=== PATIENT | male | born 1975 | race Caucasian/White ===

== ENCOUNTER 2018-10-15 00:06 | Emergency (ER) | payer MEDICAID ==
[~2018-10-15] VITALS: Ht 180.3 cm; Wt 131.5 kg
--- NOTE | 2018-10-15 01:01 | NUR ---
CALLED IN WAITING ROOM, NO ANSWER.
--- NOTE | 2018-10-15 01:55 | NUR ---
PT BIBSELF C/O SHAKINESS AND THAT SOMEONE STOLE HIS MEDICATIONS. PT ALSO STATES THAT HE IS SUICIDAL WITH PLAN TO CUT HIS THROAT. PT AXO4. RESPIRATIONS EVEN AND UNLABORED. SUICIDAL PRECAUTIONS TAKEN.
[2018-10-15] MEDS ORDERED: LORAZEPAM 1 MG TABLET PO ONE (02:00)
[2018-10-15] MEDS ORDERED: LORAZEPAM 1 MG TABLET ONE (03:06)
--- NOTE | 2018-10-15 04:00 | NUR ---
PT AMBULATORY WITH STEADY GAIT. URINE SAMPLE OBTAINED AND SENT TO LAB.
--- NOTE | 2018-10-15 04:05 | NUR ---
RESEARCH DEVELOPMENT MANAGER AT BEDSIDE. LABS DRAWN AND SENT TO LAB.
[2018-10-15 04:10] LABS: BASOPHILS # (AUTO) 0.1 /CMM (0.0-0.2); EOSINOPHILS % (AUTO) 1.3 % (0.0-6.0); HEMATOCRIT 36 % (39-51); HEMOGLOBIN 11.6 g/dL (13.5-17.5); LYMPHOCYTES # (AUTO) 1.8 /CMM (0.8-4.8); LYMPHOCYTES % (AUTO) 26.8 % (20.0-44.0); MEAN CORPUSCULAR HGB CONC 33 g/dl (31.0-36.0); MEAN CORPUSCULAR VOLUME 80 fL (80-96); MONOCYTES # (AUTO) 0.4 /CMM (0.1-1.30); MONOCYTES % (AUTO) 5.9 % (2.0-12.0); NEUTROPHILS # (AUTO) 4.5 /CMM (1.8-8.9); PLATELET COUNT (AUTO) 260 /CMM (150-450); RED BLOOD CELL COUNT(AUTO) 4.46 MIL/uL (4.5-6.0); WHITE BLOOD COUNT (AUTO) 6.9 K/uL (4.3-11.0)
[2018-10-15 04:21] LABS: APPEARANCE,URINE Clear (CLEAR); BILIRUBIN,URINE Negative (NEGATIVE); BLOOD, URINE Negative Ery/uL (NEGATIVE); COLOR,URINE Yellow (YELLOW); KETONES,URINE 15 (NEGATIVE); LEUKOCYTE ESTERASE ,URINE Negative (NEGATIVE); NITRITE, URINE Negative (NEGATIVE); PROTEIN,URINE Negative (NEGATIVE); UGLUCOSE Negative (NEGATIVE)
[2018-10-15 04:26] LABS: CALCIUM, SERUM 8.4 mg/dL (8.5-10.1); CREATININE 0.7 mg/dL (0.6-1.3); POTASSIUM 3.3 mmol/L (3.5-5.1)
[2018-10-15 04:32] LABS: ALBUMIN 3.6 g/dL (3.4-5.0); BILIRUBIN,DIRECT 0.2 mg/dL (0.0-0.2); BILIRUBIN,TOTAL 0.7 mg/dL (0.2-1.0)
[2018-10-15 04:40] LABS: SALICYLATE 0.8 mg/dL (2.8-20.0)
[2018-10-15 05:15] LABS: BACTERIA,URINE None seen /HPF (None Seen); RBC,URINE 0-2 /HPF (0-2); SQUAMOUS EPITHELIAL CELL,UR Few /HPF (None Seen); WBC,URINE 0-2 /HPF (0-3)
--- NOTE | 2018-10-15 06:02 | NUR ---
PT RESTING IN BED, NAD NOTED. WILL CONTINUE TO MONITOR.
--- NOTE | 2018-10-15 06:35 | NUR ---
accepted to jennie [facility]. number for report [phone]. will call back with ambulance eta.
--- NOTE | 2018-10-15 06:36 | NUR ---
AMBULANCE ETA 0800
--- NOTE | 2018-10-15 06:40 | NUR ---
REPORT GIVEN TO CRISTOPHER BURTON AT [facility].
--- NOTE | 2018-10-15 07:35 | NUR ---
REPORT GIVEN TO ALETHEA BURTON [facility].
--- NOTE | 2018-10-15 07:35 | NUR ---
REPORT RECEIVED FROM MAUREEN BURTON [facility]
--- NOTE | 2018-10-15 08:27 | NUR ---
ALL BELONGINGS GIVEN TO PATIENT.
[2018-10-15 08:28] VITALS: BP 146/100
--- NOTE | 2018-10-15 08:29 | NUR ---
Patient discharged to [facility] in stable condition. Written and verbal after care instructions given. Patient verbalizes understanding of instruction. PT WILL BE TRANSFERRED TO [facility].
== END 2018-10-15 08:32 ==
LOC: ER 00:07
DX: F41.9 Anxiety disorder, unspecified (principal); R45.851 Suicidal ideations; F19.10 Other psychoactive substance abuse, uncomplicated; F31.9 Bipolar disorder, unspecified; F20.9 Schizophrenia, unspecified; F29 Unspecified psychosis not due to a substance or known physiological condition; F10.10 Alcohol abuse, uncomplicated; F15.10 Other stimulant abuse, uncomplicated; Y90.2 Blood alcohol level of 40-59 mg/100 ml
CPT/HCPCS: 36415; 80048; 80076; 80305; 80307; 80329; 81001; 85025; 99285; G0480; 81000-TC

== ENCOUNTER 2019-03-10 01:26 | Emergency (ER) | payer MEDICAID, OTHER ==
[~2019-03-10] VITALS: Ht 182.9 cm; Wt 136.1 kg
--- NOTE | 2019-03-10 01:56 | NUR ---
SAMAN. C/O "IM HAVING AUDATORY HALLUCINATIONS TELLING ME TO HURT MYSELF AND OTHERS" -SOB AOX4. VSS.
[2019-03-10] MEDS ORDERED: QUETIAPINE FUMARATE 25 MG TABLET ONE (01:58)
[2019-03-10] MEDS ORDERED: QUETIAPINE FUMARATE 100 MG TABLET PO SCH (02:00)
[2019-03-10 02:13] LABS: BASOPHILS % (AUTO) 0.6 % (0.0-2.0); EOSINOPHILS % (AUTO) 2.6 % (0.0-6.0); HEMATOCRIT 38 % (39-51); HEMOGLOBIN 12.1 g/dL (13.5-17.5); LYMPHOCYTES # (AUTO) 2.9 /CMM (0.8-4.8); LYMPHOCYTES % (AUTO) 49.5 % (20.0-44.0); MEAN CORPUSCULAR HGB CONC 32 g/dl (31.0-36.0); MEAN CORPUSCULAR VOLUME 79 fL (80-96); MONOCYTES # (AUTO) 0.3 /CMM (0.1-1.30); NEUTROPHILS # (AUTO) 2.4 /CMM (1.8-8.9); NEUTROPHILS % (AUTO) 42.3 % (43.0-81.0); PLATELET COUNT (AUTO) 332 /CMM (150-450); RED BLOOD CELL COUNT(AUTO) 4.75 MIL/uL (4.5-6.0); WHITE BLOOD COUNT (AUTO) 5.8 K/uL (4.3-11.0)
[2019-03-10 02:18] LABS: APPEARANCE,URINE CLEAR (CLEAR); BILIRUBIN,URINE NEGATIVE (NEGATIVE); BLOOD, URINE NEGATIVE Ery/uL (NEGATIVE); COLOR,URINE YELLOW (YELLOW); KETONES,URINE NEGATIVE (NEGATIVE); LEUKOCYTE ESTERASE ,URINE NEGATIVE (NEGATIVE); NITRITE, URINE NEGATIVE (NEGATIVE); PROTEIN,URINE NEGATIVE (NEGATIVE); UGLUCOSE NEGATIVE (NEGATIVE); UROBILINOGEN,URINE 0.2 EU/dL (0.2)
[2019-03-10 02:21] LABS: CALCIUM, SERUM 7.6 mg/dL (8.5-10.1); CREATININE 0.8 mg/dL (0.6-1.3); POTASSIUM 3.4 mmol/L (3.5-5.1)
[2019-03-10 02:28] LABS: ALBUMIN 3.1 g/dL (3.4-5.0); BILIRUBIN,DIRECT 0.1 mg/dL (0.0-0.2); BILIRUBIN,TOTAL 0.2 mg/dL (0.2-1.0); TOTAL PROTEIN, SERUM 7.6 g/dL (6.4-8.2)
[2019-03-10 02:29] LABS: SALICYLATE 0.5 mg/dL (2.8-20.0)
--- NOTE | 2019-03-10 05:56 | NUR ---
Patient is resting comfortably in bed with eyes closed. Easily aroused. VSS
--- NOTE | 2019-03-10 07:30 | NUR ---
REPORT REC'D FROM SAMSON B[facility]TON [facility].
--- NOTE | 2019-03-10 08:00 | NUR ---
ONCE PT ETOH LEVEL IS BELOW 100, SEND INFO TO [facility] FOR POSSIBLE ADMISSION
[2019-03-10] MEDS ORDERED: diphenhydrAMINE HCL 25 MG CAPSULE ONE (12:40)
[2019-03-10] MEDS ORDERED: diphenhydrAMINE HCL 25 MG CAPSULE PO ONE (13:00)
--- NOTE | 2019-03-10 14:00 | NUR ---
PT ETOH LEVEL IS BACK, <100 CALLED [facility] SPOKE TO KATYA TO SEND CLINICALS
--- NOTE | 2019-03-10 15:00 | NUR ---
PT NEEDS TO HAVE A NOTE SAYING MEDICALLY CLEAR FOR PSYCH ADMIT, DR. CUELLAR MADE AWARE
[2019-03-10 20:04] VITALS: BP 122/78
--- NOTE | 2019-03-10 20:20 | NUR ---
PT ACCEPTED TO [facility] BY DR TUTTLE. # FOR REPORT [phone]
[2019-03-10] MEDS ORDERED: POTASSIUM CHLORIDE 20 MEQ TAB.PRT.SR PO ONE ×2 (20:22→20:30)
--- NOTE | 2019-03-10 20:29 | NUR ---
ambulnz eta [id number]
--- NOTE | 2019-03-10 20:35 | NUR ---
ETA [facility] [phone]
--- NOTE | 2019-03-10 21:11 | NUR ---
[facility] AT BEDSIDE FOR TRANSPORT.
== END 2019-03-10 21:40 | disposition short-term general hospital (02) ==
LOC: ER 01:26
DX: R45.851 Suicidal ideations (principal); R44.0 Auditory hallucinations; F10.129 Alcohol abuse with intoxication, unspecified; Y90.8 Blood alcohol level of 240 mg/100 ml or more
CPT/HCPCS: 36415; 80048; 80076; 80305; 80307 ×2; 80329; 81001; 85025; 99285; G0480; Q0163; 81000-TC

== ENCOUNTER 2021-11-07 07:58 | Emergency (ER) | payer OTHER ==
[~2021-11-07] VITALS: Ht 182.9 cm; Wt 108.9 kg
[2021-11-07 08:39] LABS: BASOPHILS % (AUTO) 0.5 % (0.0-2.0); EOSINOPHILS % (AUTO) 5.1 % (0.0-6.0); HEMATOCRIT 37 % (39-51); HEMOGLOBIN 12.2 g/dL (13.5-17.5); LYMPHOCYTES # (AUTO) 2.3 K/uL (0.8-4.8); MEAN CORPUSCULAR HGB CONC 33 g/dl (31.0-36.0); MEAN CORPUSCULAR VOLUME 79 fL (80-96); MONOCYTES # (AUTO) 0.4 K/uL (0.1-1.30); MONOCYTES % (AUTO) 5.1 % (2.0-12.0); NEUTROPHILS # (AUTO) 4.3 K/uL (1.8-8.9); NEUTROPHILS % (AUTO) 58.3 % (43.0-81.0); PLATELET COUNT (AUTO) 234 K/uL (150-450); RED BLOOD CELL COUNT(AUTO) 4.76 MIL/uL (4.5-6.0); WHITE BLOOD COUNT (AUTO) 7.4 K/uL (4.3-11.0)
[2021-11-07] MEDS ORDERED: diphenhydrAMINE HCL 25 MG CAPSULE PO ONE (09:00)
[2021-11-07] MEDS ORDERED: diphenhydrAMINE HCL 25 MG CAPSULE ONE (09:03)
[2021-11-07 09:10] LABS: CALCIUM, SERUM 8.5 mg/dL (8.5-10.1); CREATININE 0.7 mg/dL (0.6-1.3); POTASSIUM 3.4 mmol/L (3.5-5.1)
[2021-11-07 09:14] LABS: ALBUMIN 3.3 g/dL (3.4-5.0); BILIRUBIN,DIRECT 0.3 mg/dL (0.0-0.2); BILIRUBIN,TOTAL 0.8 mg/dL (0.2-1.0); TOTAL PROTEIN, SERUM 7.8 g/dL (6.4-8.2)
--- NOTE | 2021-11-07 11:20 | NUR ---
FAXED CLINICALS TO [facility]TA[facility].
--- NOTE | 2021-11-07 12:57 | NUR ---
SS consult requested for possible homelessness and suicidal ideation. Pt. is a 45-year-old male who was admitted to [facility] on 11/07/2021 due to medical clearance. Upon SS consult, pt. is alert and oriented x4. Pt. appears tired and does not provide appropriate eye contact. Pt. appears with a depressed mood and congruent affect. Pt. presents with low speech and appears unkempt. Pt. was cooperative throughout the assessment. Pt. stated he got out of assisted eight days ago and has been living at his Uncles house. Pt. could not provide contact information or an address. business planner offered pt. homeless resources and pt. accepted. business planner explored pt.'s psychiatric history. Pt. stated he is diagnosed with schizoaffective disorder. Pt. stated he is prescribed alprazolam. business planner offered the pt. mental health resources and the pt. accepted. Pt. stated he came to the hospital because he was having auditory hallucinations and suicidal ideation with a plan. Pt. did not disclose what the plan was. Pt. stated he wanted to be placed at [facility] [[address] [place] [address]]. Pt. denied substance use. Pt. denied homicidal ideation. Pt. denied visual hallucinations. Plan: Plan: Upon Discharge, pt. stated he wanted to be discharged to [facility] [[address] [place] [address]]. Pt. signed homeless waiver and it was placed in the chart. provided the pt. with the following homeless resources: Year-round shelters: [facility] [address] [place], [place] [id number] ; [facility] [address] [place] [address]; [facility] [id number] [facility]. [facility] [address] Hygiene: [facility]: [address] ; [facility] [address] [facility] ; [facility] [address] [place] . Food Resources: [place] [facility] at [facility]- [address] [place]; Meet Each Need with [facility] ([facility]) [address]. [place]; [facility] [address] [facility]; [facility] [address] [facility]. Mental Health resources provided: [facility] [address] [place] [address] ; [facility] [place], [facility]. [address] [facility] [address], [place] [address] ; [facility] [address] [facility] [place] [address] ; [facility] [place], [place] [id number] Healthcare Clinics: [facility] [address] [facility], [address] [place]. [place] ; [facility] [address] [facility] [address] [place] [address]; [place] [address] [facility] [place] [address] [phone]
--- NOTE | 2021-11-07 14:24 | NUR ---
ACCEPTED TO [facility] UNDER DR. STAPLETON CALL [phone] FOR REPORT. WILL SEND INDEXER 1500
[2021-11-07] MEDS ORDERED: TEMAZEPAM 15 MG CAPSULE PO PRN (14:30)
[2021-11-07 16:00] VITALS: BP 118/76
--- NOTE | 2021-11-07 16:40 | NUR ---
PICKED UP BY [facility] IN STABLE CONDITION
== END 2021-11-07 16:44 ==
LOC: ER 08:14
DX: R45.851 Suicidal ideations (principal); F20.9 Schizophrenia, unspecified; F31.9 Bipolar disorder, unspecified; Z59.01 Sheltered homelessness; Z87.820 Personal history of traumatic brain injury; Z20.822 Contact with and (suspected) exposure to COVID-19
CPT/HCPCS: 99285; 85025; 80048; 80076; 36415; 87426; 80143; 80320; 80307; Q0163; C9803; G0480

== ENCOUNTER 2021-12-03 04:53 | Emergency (ER) | payer OTHER ==
[~2021-12-03] VITALS: Ht 172.7 cm; Wt 113.4 kg
[2021-12-03 05:00] VITALS: BP 149/82
--- NOTE | 2021-12-03 05:15 | NUR ---
PATIENT BIBSELF C/O +SI WITH NO PLAN, WANTS VOL PSYCH ADMIT TO [facility]. PATIENT IS A/O X 4, RR EVEN AND UNLABORED NO SOB NOTED, PATIENT IS AFEBRILE, VSS. PATIENT TAKEN TO ER BED 18, WANDED BY SECURITY AND BELONGINGS TAKEN. WILL CONTINUE TO MONITOR.
--- NOTE | 2021-12-03 05:16 | NUR ---
URINE COLLECTED SENT TO LAB
[2021-12-03 05:34] LABS: BASOPHILS % (AUTO) 0.6 % (0.0-2.0); EOSINOPHILS % (AUTO) 2.4 % (0.0-6.0); HEMATOCRIT 40 % (39-51); HEMOGLOBIN 12.7 g/dL (13.5-17.5); LYMPHOCYTES # (AUTO) 2.6 K/uL (0.8-4.8); LYMPHOCYTES % (AUTO) 32.2 % (20.0-44.0); MEAN CORPUSCULAR HGB CONC 32 g/dl (31.0-36.0); MEAN CORPUSCULAR VOLUME 82 fL (80-96); MONOCYTES # (AUTO) 0.4 K/uL (0.1-1.30); MONOCYTES % (AUTO) 4.5 % (2.0-12.0); NEUTROPHILS # (AUTO) 4.9 K/uL (1.8-8.9); NEUTROPHILS % (AUTO) 60.3 % (43.0-81.0); PLATELET COUNT (AUTO) 324 K/uL (150-450); RED BLOOD CELL COUNT(AUTO) 4.89 MIL/uL (4.5-6.0); WHITE BLOOD COUNT (AUTO) 8.1 K/uL (4.3-11.0)
[2021-12-03 05:37] LABS: BILIRUBIN,URINE SMALL (NEGATIVE); COLOR,URINE YELLOW (YELLOW); LEUKOCYTE ESTERASE ,URINE NEGATIVE (NEGATIVE); NITRITE, URINE NEGATIVE (NEGATIVE); PROTEIN,URINE NEGATIVE (NEGATIVE); UGLUCOSE NEGATIVE (NEGATIVE)
--- NOTE | 2021-12-03 05:44 | NUR ---
COVID SWAB COLLECTED SENT TO LAB
[2021-12-03 05:49] LABS: CALCIUM, SERUM 8.4 mg/dL (8.5-10.1); CREATININE 0.7 mg/dL (0.6-1.3)
[2021-12-03 05:54] LABS: ALBUMIN 3.5 g/dL (3.4-5.0); BILIRUBIN,DIRECT 0.2 mg/dL (0.0-0.2); BILIRUBIN,TOTAL 0.6 mg/dL (0.2-1.0); TOTAL PROTEIN, SERUM 7.8 g/dL (6.4-8.2)
--- NOTE | 2021-12-03 07:53 | NUR ---
MOVE SHEET SUBMITTED.
[2021-12-03] MEDS ORDERED: CHLORDIAZEPOXIDE HCL 25 MG CAPSULE ONE (10:57)
[2021-12-03] MEDS ORDERED: LORAZEPAM 1 MG TABLET ONE (10:58)
[2021-12-03] MEDS ORDERED: LORAZEPAM 1 MG TABLET PO ONE (11:00)
[2021-12-03] MEDS ORDERED: CHLORDIAZEPOXIDE HCL 25 MG CAPSULE PO ONE (11:00)
[2021-12-03] MEDS ORDERED: POTASSIUM CHLORIDE 20 MEQ TAB.PRT.SR PO ONE ×2 (14:30)
--- NOTE | 2021-12-03 15:21 | NUR ---
PT ACCEPTED TO [facility] UNDER DR. TUTTLE PLEASE CALL [phone] FOR REPORT IN CLASSROOM TUTOR WILL BE HERE AT [phone]
== END 2021-12-03 16:34 ==
LOC: ER 04:55
DX: R45.851 Suicidal ideations (principal); F19.10 Other psychoactive substance abuse, uncomplicated; Z59.01 Sheltered homelessness; F10.129 Alcohol abuse with intoxication, unspecified; Y90.8 Blood alcohol level of 240 mg/100 ml or more; E87.6 Hypokalemia; Z20.822 Contact with and (suspected) exposure to COVID-19
CPT/HCPCS: 99285; 85025; 80048; 80076; 81003; 36415; 87426; 80143; 80320 ×3; 80307; C9803; G0480

== ENCOUNTER 2022-01-03 06:06 | Emergency (ER) | payer OTHER ==
--- NOTE | 2022-01-03 06:10 | NUR ---
PATIENT CALLEDTO JOVANI NO ANSWER
--- NOTE | 2022-01-03 06:20 | NUR ---
TIA NOT IN WAITING ROOM
== END 2022-01-03 06:21 | disposition left against medical advice (07) ==
LOC: ER 06:13
DX: Z53.21 Procedure and treatment not carried out due to patient leaving prior to being seen by health care provider (principal)

== ENCOUNTER 2022-02-03 08:43 | Emergency (ER) | payer OTHER ==
[~2022-02-03] VITALS: Ht 180.3 cm; Wt 136.1 kg
--- NOTE | 2022-02-03 09:23 | NUR ---
TO ER 18 FOR EVAL,SECURITY CALLED FOR WANDING
[2022-02-03 09:51] LABS: BASOPHILS % (AUTO) 0.8 % (0.0-2.0); EOSINOPHILS % (AUTO) 2.5 % (0.0-6.0); HEMATOCRIT 42 % (39-51); HEMOGLOBIN 13.4 g/dL (13.5-17.5); LYMPHOCYTES # (AUTO) 2.3 K/uL (0.8-4.8); LYMPHOCYTES % (AUTO) 42.1 % (20.0-44.0); MEAN CORPUSCULAR HGB CONC 32 g/dl (31.0-36.0); MEAN CORPUSCULAR VOLUME 80 fL (80-96); MONOCYTES # (AUTO) 0.4 K/uL (0.1-1.30); MONOCYTES % (AUTO) 7.2 % (2.0-12.0); NEUTROPHILS # (AUTO) 2.6 K/uL (1.8-8.9); NEUTROPHILS % (AUTO) 47.4 % (43.0-81.0); PLATELET COUNT (AUTO) 255 K/uL (150-450); RED BLOOD CELL COUNT(AUTO) 5.23 MIL/uL (4.5-6.0); WHITE BLOOD COUNT (AUTO) 5.4 K/uL (4.3-11.0)
[2022-02-03 10:13] LABS: ALBUMIN 3.8 g/dL (3.4-5.0); BILIRUBIN,DIRECT 0.2 mg/dL (0.0-0.2); BILIRUBIN,TOTAL 0.5 mg/dL (0.2-1.0); CALCIUM, SERUM 8.7 mg/dL (8.5-10.1); CREATININE 0.7 mg/dL (0.6-1.3); POTASSIUM 3.3 mmol/L (3.5-5.1)
[2022-02-03 10:50] LABS: BILIRUBIN,URINE NEGATIVE (NEGATIVE); COLOR,URINE YELLOW (YELLOW); LEUKOCYTE ESTERASE ,URINE NEGATIVE (NEGATIVE); NITRITE, URINE NEGATIVE (NEGATIVE); PROTEIN,URINE NEGATIVE (NEGATIVE); UGLUCOSE NEGATIVE (NEGATIVE); UROBILINOGEN,URINE 0.2 EU/dL (0.2)
[2022-02-03] MEDS ORDERED: LORAZEPAM 1 MG TABLET ONE (19:44)
[2022-02-03] MEDS ORDERED: LORAZEPAM 1 MG TABLET PO ONE (20:00)
--- NOTE | 2022-02-03 21:41 | NUR ---
FACESHEET AND CLINICALS FAXED TO [facility].
[2022-02-03 22:19] VITALS: BP 148/88
--- NOTE | 2022-02-03 23:06 | NUR ---
[facility] [facility] [place] [facility] [place]. # FOR REPORT [phone].
--- NOTE | 2022-02-03 23:10 | NUR ---
[facility] ETA 1HR
[2022-02-03] MEDS ORDERED: POTASSIUM CHLORIDE 20 MEQ TAB.PRT.SR PO ONE (23:30)
[2022-02-04] MEDS ORDERED: POTASSIUM CHLORIDE 20 MEQ TAB.PRT.SR PO ONE (00:22)
--- NOTE | 2022-02-04 00:40 | NUR ---
PT WAS TRANSFERRED TO [facility] IN STABLE CONDITION.
== END 2022-02-04 01:21 ==
LOC: ER 08:48
DX: R45.851 Suicidal ideations (principal); F20.9 Schizophrenia, unspecified; F31.9 Bipolar disorder, unspecified; Z87.820 Personal history of traumatic brain injury; Z20.822 Contact with and (suspected) exposure to COVID-19
CPT/HCPCS: 99285; 85025; 80048; 80076; 81003; 36415; 87426; 80143; 80320 ×3; 80307; C9803; G0480

== ENCOUNTER 2022-05-15 04:21 | Emergency (ER) | payer OTHER ==
[~2022-05-15] VITALS: Ht 180.3 cm; Wt 124.7 kg
--- NOTE | 2022-05-15 04:35 | NUR ---
CHANGED TO [facility]OSPITAL [facility].
--- NOTE | 2022-05-15 04:35 | NUR ---
[id number]. MEDICAL CLEARANCE - [facility] AD[facility] FOR HEARING VOICES TO CUT HIS THROAT. PATIENT IS ALERT, AMBULATORY, ABLE TO MAKE NEEDS KNOWN. PLACED COMFORTABLY IN BED. VITALS CHECKED.
--- NOTE | 2022-05-15 04:36 | NUR ---
URINE SPECIMEN SENT TO LAB
--- NOTE | 2022-05-15 04:37 | NUR ---
COVID SWAB DONE AND SENT TO LAB
[2022-05-15 05:05] LABS: EOSINOPHILS % (AUTO) 1.5 % (0.0-6.0); HEMATOCRIT 37 % (39-51); HEMOGLOBIN 12.2 g/dL (13.5-17.5); LYMPHOCYTES # (AUTO) 1.1 K/uL (0.8-4.8); LYMPHOCYTES % (AUTO) 28.7 % (20.0-44.0); MEAN CORPUSCULAR HGB CONC 33 g/dl (31.0-36.0); MEAN CORPUSCULAR VOLUME 84 fL (80-96); MONOCYTES # (AUTO) 0.8 K/uL (0.1-1.30); MONOCYTES % (AUTO) 20.8 % (2.0-12.0); NEUTROPHILS # (AUTO) 1.8 K/uL (1.8-8.9); PLATELET COUNT (AUTO) 209 K/uL (150-450); RED BLOOD CELL COUNT(AUTO) 4.45 MIL/uL (4.5-6.0); WHITE BLOOD COUNT (AUTO) 3.7 K/uL (4.3-11.0)
[2022-05-15 05:13] LABS: CALCIUM, SERUM 8.3 mg/dL (8.5-10.1); CREATININE 0.7 mg/dL (0.6-1.3); POTASSIUM 2.9 mmol/L (3.5-5.1)
[2022-05-15 05:13] LABS: BILIRUBIN,URINE NEGATIVE (NEGATIVE); COLOR,URINE YELLOW (YELLOW); LEUKOCYTE ESTERASE ,URINE NEGATIVE (NEGATIVE); NITRITE, URINE NEGATIVE (NEGATIVE); PROTEIN,URINE NEGATIVE (NEGATIVE); UGLUCOSE NEGATIVE (NEGATIVE)
[2022-05-15 05:25] LABS: ALBUMIN 3.2 g/dL (3.4-5.0); BILIRUBIN,DIRECT 0.1 mg/dL (0.0-0.2); BILIRUBIN,TOTAL 0.3 mg/dL (0.2-1.0); TOTAL PROTEIN, SERUM 7.1 g/dL (6.4-8.2)
[2022-05-15 05:27] LABS: BACTERIA,URINE Rare /HPF (None Seen); RBC,URINE 0-2 /HPF (0-2); SQUAMOUS EPITHELIAL CELL,UR Rare /HPF (None Seen)
--- NOTE | 2022-05-15 06:25 | NUR ---
FACESHEET AND CLINICALS FAXED TO [facility].
[2022-05-15] MEDS ORDERED: POTASSIUM CHLORIDE 20 MEQ TAB.PRT.SR PO ONE ×2 (06:30→06:32)
--- NOTE | 2022-05-15 08:13 | NUR ---
PT ACCEPTED TO [facility] UNDER DR. TUTTLE PLEASE CALL [phone] FOR REPORT
--- NOTE | 2022-05-15 09:31 | NUR ---
MAILBOX FULL, NOT ABLE TO GIVE REPORT OR LEAVE MESSAGE
[2022-05-15 10:10] VITALS: BP 136/70
--- NOTE | 2022-05-15 10:16 | NUR ---
TRANSPORTATION WAITING FOR PATIENT. BELONGINGS GIVEN TO PATIENT
--- NOTE | 2022-05-15 10:23 | NUR ---
PICKED UP BY [facility] TRANSPORT PERSONNEL IN STABLE CONDITION. ALL BELONGINGS GIVEN BACK TO PATIENT. CLINICALS PROVIDED TO BE GIVEN TO [facility].
[2022-05-15 11:15] LABS: BAND % (MANUAL) 7 % (0.0-5.0); EOSINOPHILS % (MANUAL) 1 % (0-4); LYMPHOCYTES % (MANUAL) 35 % (16-48); MONOCYTES % (MANUAL) 20 % (0-11.0); NEUTROPHILS % (MANUAL) 37 (42-76)
== END 2022-05-15 10:29 ==
LOC: ER 04:25
DX: F20.9 Schizophrenia, unspecified (principal); F10.129 Alcohol abuse with intoxication, unspecified; F31.9 Bipolar disorder, unspecified; F19.10 Other psychoactive substance abuse, uncomplicated; Y90.4 Blood alcohol level of 80-99 mg/100 ml; E87.6 Hypokalemia; Z20.822 Contact with and (suspected) exposure to COVID-19; Z87.820 Personal history of traumatic brain injury
CPT/HCPCS: 99283; 85025; 80048; 80076; 85007; 81001; 36415; 87426; 80143; 80320; 80307; C9803; G0480

== ENCOUNTER 2022-05-23 09:55 | Emergency (ER) | payer OTHER ==
[~2022-05-23] VITALS: Ht 180.3 cm; Wt 122.5 kg
--- NOTE | 2022-05-23 10:28 | NUR ---
URINE SAMPLE COLLECTED AND SENT TO LAB
--- NOTE | 2022-05-23 10:28 | NUR ---
COVID SWAB COLLECTED AND SENT TO LAB
--- NOTE | 2022-05-23 10:30 | NUR ---
DR PADILLA AT BEDSIDE FOR EVAL.
[2022-05-23 10:59] LABS: BASOPHILS # (AUTO) 0.1 K/uL (0.0-0.2); BASOPHILS % (AUTO) 0.7 % (0.0-2.0); EOSINOPHILS % (AUTO) 1.4 % (0.0-6.0); HEMATOCRIT 40 % (39-51); HEMOGLOBIN 12.9 g/dL (13.5-17.5); LYMPHOCYTES # (AUTO) 1.6 K/uL (0.8-4.8); LYMPHOCYTES % (AUTO) 16.1 % (20.0-44.0); MEAN CORPUSCULAR HGB CONC 32 g/dl (31.0-36.0); MEAN CORPUSCULAR VOLUME 83 fL (80-96); MONOCYTES # (AUTO) 0.7 K/uL (0.1-1.30); MONOCYTES % (AUTO) 7.1 % (2.0-12.0); NEUTROPHILS # (AUTO) 7.4 K/uL (1.8-8.9); NEUTROPHILS % (AUTO) 74.7 % (43.0-81.0); PLATELET COUNT (AUTO) 401 K/uL (150-450); RED BLOOD CELL COUNT(AUTO) 4.86 MIL/uL (4.5-6.0); WHITE BLOOD COUNT (AUTO) 9.8 K/uL (4.3-11.0)
[2022-05-23 11:07] LABS: BILIRUBIN,URINE 1+ (NEGATIVE); COLOR,URINE DARK YELLOW (YELLOW); LEUKOCYTE ESTERASE ,URINE NEGATIVE (NEGATIVE); NITRITE, URINE NEGATIVE (NEGATIVE); PROTEIN,URINE NEGATIVE (NEGATIVE); UGLUCOSE NEGATIVE (NEGATIVE); UROBILINOGEN,URINE 0.2 EU/dL (0.2)
[2022-05-23 11:21] LABS: BACTERIA,URINE None seen /HPF (None Seen); RBC,URINE NONE SEEN /HPF (0-2); SQUAMOUS EPITHELIAL CELL,UR None Seen /HPF (None Seen); WBC,URINE 0-2 /HPF (0-3)
[2022-05-23 11:23] LABS: BILIRUBIN,DIRECT 0.2 mg/dL (0.0-0.2); BILIRUBIN,TOTAL 0.3 mg/dL (0.2-1.0); CALCIUM, SERUM 8.6 mg/dL (8.5-10.1); CREATININE 0.8 mg/dL (0.6-1.3); POTASSIUM 3.5 mmol/L (3.5-5.1); TOTAL PROTEIN, SERUM 7.2 g/dL (6.4-8.2)
[2022-05-23] MEDS ORDERED: OLAN5TAB3 PO (12:57)
--- NOTE | 2022-05-23 13:16 | NUR ---
SEEN AND EVALUATED BY DR PADILLA AND DAREN GUILLERMO ARMOR OFFICER. MEDICALLY CLEARED. DECIDED THAT HE FEELS OK AND IS NOT SUICIDAL AT THE MOMENT. REQUETED TO GO HOME. NOT ON 5150 HOLD. DISCHARGE FROM ED IN STABLE CONDITION.
[2022-05-23 13:18] VITALS: BP 115/64
== END 2022-05-23 13:21 | disposition home or self-care (01) ==
LOC: ER 10:04
DX: R45.851 Suicidal ideations (principal); F20.9 Schizophrenia, unspecified; F31.9 Bipolar disorder, unspecified; F29 Unspecified psychosis not due to a substance or known physiological condition; Z20.822 Contact with and (suspected) exposure to COVID-19
CPT/HCPCS: 99285; 85025; 80048; 80076; 81001; 36415; 87426; 80143; 80320; 80307; C9803; G0480

== ENCOUNTER 2022-11-02 02:22 | Emergency (ER) | payer OTHER ==
[~2022-11-02] VITALS: Ht 180.3 cm; Wt 124.7 kg
[~2022-11-02 02:22] MED LIST: OLAN5TAB3 PO
[2022-11-02 03:35] LABS: MEAN CORPUSCULAR VOLUME 86 fL (80-96); WHITE BLOOD COUNT (AUTO) 2.6 K/uL (4.3-11.0)
[2022-11-02 03:40] LABS: BASOPHILS % (AUTO) 0.9 % (0.0-2.0); EOSINOPHILS # (AUTO) 0.1 K/uL (0.0-0.7); EOSINOPHILS % (AUTO) 2.3 % (0.0-6.0); HEMATOCRIT 37 % (39-51); HEMOGLOBIN 11.8 g/dL (13.5-17.5); LYMPHOCYTES # (AUTO) 1.6 K/uL (0.8-4.8); MEAN CORPUSCULAR HEMOGLOBIN 27 PG (26.0-33.0); MEAN CORPUSCULAR HGB CONC 32 g/dl (31.0-36.0); MONOCYTES # (AUTO) 0.2 K/uL (0.1-1.30); MONOCYTES % (AUTO) 9.4 % (2.0-12.0); NEUTROPHILS # (AUTO) 0.8 K/uL (1.8-8.9); NEUTROPHILS % (AUTO) 28.4 % (43.0-81.0); PLATELET COUNT (AUTO) 160 K/uL (150-450); RED BLOOD CELL COUNT(AUTO) 4.33 MIL/uL (4.5-6.0); RED CELL DISTRIBUTION WIDTH 17.1 % (11.5-15.0)
[2022-11-02 03:43] LABS: CALCIUM, SERUM 8.3 mg/dL (8.5-10.1); CARBON DIOXIDE 25 mmol/L (21-32); CHLORIDE 107 mmol/L (98-107); CREATININE 0.6 mg/dL (0.6-1.3); GLUCOSE 99 mg/dL (74-106); POTASSIUM 3.2 mmol/L (3.5-5.1); SODIUM SERUM 145 mmol/L (136-145); UREA NITROGEN, BLOOD 5 mg/dL (7-18)
[2022-11-02 03:51] LABS: ALANINE AMINOTRANSFERASE 116 U/L (12-78); ALBUMIN 3.2 g/dL (3.4-5.0); ALCOHOL, BLOOD 317 mg/dL (0-10); ALKALINE PHOSPHATASE 149 U/L (46-116); ASPARTATE AMINOTRANSFERASE 204 U/L (15-37); BILIRUBIN,DIRECT 0.2 mg/dL (0.0-0.2); BILIRUBIN,TOTAL 0.3 mg/dL (0.2-1.0); TOTAL PROTEIN, SERUM 7.9 g/dL (6.4-8.2)
[2022-11-02 03:57] LABS: ACETAMINOPHEN <10 ug/ml (10-30); SALICYLATE < 2.3 mg/dL (2.8-20.0)
[2022-11-02 04:10] LABS: ANISOCYTOSIS 1+; EOSINOPHILS % (MANUAL) 4 % (0-4); LYMPHOCYTES % (MANUAL) 65 % (16-48); MONOCYTES % (MANUAL) 7 % (0-11.0); NEUTROPHILS % (MANUAL) 24 (42-76)
[2022-11-02 04:11] LABS: PLATELET ESTIMATE ADEQUATE
[2022-11-02 06:34] LABS: APPEARANCE,URINE CLEAR (CLEAR); BILIRUBIN,URINE NEGATIVE (NEGATIVE); BLOOD, URINE NEGATIVE Ery/uL (NEGATIVE); COLOR,URINE YELLOW (YELLOW); KETONES,URINE NEGATIVE (NEGATIVE); LEUKOCYTE ESTERASE ,URINE NEGATIVE (NEGATIVE); NITRITE, URINE NEGATIVE (NEGATIVE); PROTEIN,URINE NEGATIVE (NEGATIVE); UGLUCOSE NEGATIVE (NEGATIVE)
[2022-11-02 06:35] LABS: AMPHETAMINE, URINE POSITIVE (NEGATIVE); BARBITURATE, URINE NEGATIVE (NEGATIVE); BENZODIAZEPINE, URINE POSITIVE (NEGATIVE); CANNABINOID, URINE NEGATIVE (NEGATIVE); COCCAINE, URINE NEGATIVE (NEGATIVE); OPIATE, URINE NEGATIVE (NEGATIVE); PHENCYCLIDINE SCREEN,URINE NEGATIVE (NEGATIVE)
[2022-11-02 07:32] LABS: ADD URINE CULTURE NO; BACTERIA,URINE None seen /HPF (None Seen); RBC,URINE NONE SEEN /HPF (0-2); SQUAMOUS EPITHELIAL CELL,UR Rare /HPF (None Seen); WBC,URINE 0-2 /HPF (0-3)
[2022-11-02 13:34] VITALS: BP 143/81; TEMP 98.1; O2SAT 98
== END 2022-11-02 13:34 | disposition home or self-care (01) ==
LOC: ER 02:29
DX: U07.1 COVID-19 (principal); F32.A Depression, unspecified; F20.9 Schizophrenia, unspecified; Z79.899 Other long term (current) drug therapy
CPT/HCPCS: 99283; 85025; 80048; 80076; 85007; 81001; 36415; 85060; 87426; 80143; 80320; 80307; C9803; G0480

== ENCOUNTER 2023-04-25 23:10 | Emergency (ER) | payer OTHER, MEDICAID ==
[~2023-04-25] VITALS: Ht 180.3 cm; Wt 124.7 kg
[2023-04-25 23:23] VITALS: TEMP 98.2
[2023-04-25 23:27] VITALS: BP 154/88; O2SAT 96
[2023-04-26] LABS: BASOPHILS % (AUTO) 0.4 % (0.0-2.0); EOSINOPHILS # (AUTO) 0.1 K/uL (0.0-0.7); EOSINOPHILS % (AUTO) 0.7 % (0.0-6.0); HEMATOCRIT 37 % (39-51); HEMOGLOBIN 12.2 g/dL (13.5-17.5); LYMPHOCYTES # (AUTO) 2.4 K/uL (0.8-4.8); LYMPHOCYTES % (AUTO) 25.2 % (20.0-44.0); MEAN CORPUSCULAR HEMOGLOBIN 29 PG (26.0-33.0); MEAN CORPUSCULAR HGB CONC 33 g/dl (31.0-36.0); MEAN CORPUSCULAR VOLUME 86 fL (80-96); MONOCYTES # (AUTO) 0.8 K/uL (0.1-1.30); MONOCYTES % (AUTO) 8.3 % (2.0-12.0); NEUTROPHILS # (AUTO) 6.3 K/uL (1.8-8.9); NEUTROPHILS % (AUTO) 65.4 % (43.0-81.0); PLATELET COUNT (AUTO) 359 K/uL (150-450); RED BLOOD CELL COUNT(AUTO) 4.27 MIL/uL (4.5-6.0); RED CELL DISTRIBUTION WIDTH 15.8 % (11.5-15.0); WHITE BLOOD COUNT (AUTO) 9.6 K/uL (4.3-11.0)
[2023-04-26 00:07] LABS: APPEARANCE,URINE CLEAR (CLEAR); BILIRUBIN,URINE NEGATIVE (NEGATIVE); BLOOD, URINE NEGATIVE Ery/uL (NEGATIVE); COLOR,URINE YELLOW (YELLOW); KETONES,URINE NEGATIVE (NEGATIVE); LEUKOCYTE ESTERASE ,URINE NEGATIVE (NEGATIVE); NITRITE, URINE NEGATIVE (NEGATIVE); PROTEIN,URINE NEGATIVE (NEGATIVE); UGLUCOSE NEGATIVE (NEGATIVE); UROBILINOGEN,URINE 0.2 EU/dL (0.2)
[2023-04-26 00:08] LABS: CALCIUM, SERUM 8.4 mg/dL (8.5-10.1); CARBON DIOXIDE 26 mmol/L (21-32); CHLORIDE 100 mmol/L (98-107); CREATININE 0.8 mg/dL (0.6-1.3); GLUCOSE 129 mg/dL (74-106); POTASSIUM 3.6 mmol/L (3.5-5.1); SODIUM SERUM 136 mmol/L (136-145); UREA NITROGEN, BLOOD 4 mg/dL (7-18)
[2023-04-26 00:16] LABS: BARBITURATE, URINE NEGATIVE (NEGATIVE); BENZODIAZEPINE, URINE NEGATIVE (NEGATIVE); CANNABINOID, URINE NEGATIVE (NEGATIVE); COCCAINE, URINE NEGATIVE (NEGATIVE); OPIATE, URINE NEGATIVE (NEGATIVE); PHENCYCLIDINE SCREEN,URINE NEGATIVE (NEGATIVE)
[2023-04-26 00:17] LABS: ALANINE AMINOTRANSFERASE 34 U/L (12-78); ALBUMIN 3.3 g/dL (3.4-5.0); ALCOHOL, BLOOD 252 mg/dL (0-10); ALKALINE PHOSPHATASE 134 U/L (46-116); ASPARTATE AMINOTRANSFERASE 21 U/L (15-37); BILIRUBIN,DIRECT 0.1 mg/dL (0.0-0.2); BILIRUBIN,TOTAL 0.4 mg/dL (0.2-1.0)
[2023-04-26 00:20] LABS: AMPHETAMINE, URINE POSITIVE (NEGATIVE)
[2023-04-26 00:20] LABS: ACETAMINOPHEN <10 ug/ml (10-30); SALICYLATE 0.6 mg/dL (2.8-20.0)
== END 2023-04-26 13:03 ==
LOC: ER 23:12
DX: R44.0 Auditory hallucinations (principal); F31.9 Bipolar disorder, unspecified; Z20.822 Contact with and (suspected) exposure to COVID-19
CPT/HCPCS: 36415; 80048-TC; 80076-TC; 85025-TC; G0480

== ENCOUNTER 2023-11-09 10:21 | Emergency (ER) | payer MEDICAID, OTHER ==
[~2023-11-09] VITALS: Ht 175.3 cm; Wt 102.1 kg
[2023-11-09 11:22] LABS: APPEARANCE,URINE CLEAR (CLEAR); BILIRUBIN,URINE 1+ (NEGATIVE); BLOOD, URINE NEGATIVE Ery/uL (NEGATIVE); COLOR,URINE DARK YELLOW (YELLOW); KETONES,URINE 1+ mg/dL (NEGATIVE); LEUKOCYTE ESTERASE ,URINE NEGATIVE (NEGATIVE); NITRITE, URINE POSITIVE (NEGATIVE); PH,URINE 6.5 (5.0-8.0); PROTEIN,URINE TRACE mg/dl (NEGATIVE); UGLUCOSE TRACE mg/dL (NEGATIVE)
[2023-11-09 11:28] LABS: BASOPHILS % (AUTO) 0.7 % (0.0-2.0); EOSINOPHILS % (AUTO) 0.4 % (0.0-6.0); HEMATOCRIT 43 % (39-51); HEMOGLOBIN 13.9 g/dL (13.5-17.5); LYMPHOCYTES # (AUTO) 0.7 K/uL (0.8-4.8); LYMPHOCYTES % (AUTO) 14.9 % (20.0-44.0); MEAN CORPUSCULAR HEMOGLOBIN 29 PG (26.0-33.0); MEAN CORPUSCULAR HGB CONC 33 g/dl (31.0-36.0); MEAN CORPUSCULAR VOLUME 90 fL (80-96); MONOCYTES # (AUTO) 0.3 K/uL (0.1-1.30); MONOCYTES % (AUTO) 6.8 % (2.0-12.0); NEUTROPHILS # (AUTO) 3.7 K/uL (1.8-8.9); NEUTROPHILS % (AUTO) 77.2 % (43.0-81.0); PLATELET COUNT (AUTO) 149 K/uL (150-450); RED BLOOD CELL COUNT(AUTO) 4.75 MIL/uL (4.5-6.0); RED CELL DISTRIBUTION WIDTH 17.9 % (11.5-15.0); WHITE BLOOD COUNT (AUTO) 4.8 K/uL (4.3-11.0)
[2023-11-09 11:34] LABS: CALCIUM, SERUM 9.2 mg/dL (8.5-10.1); CARBON DIOXIDE 27 mmol/L (21-32); CHLORIDE 100 mmol/L (98-107); CREATININE 0.6 mg/dL (0.6-1.3); GLUCOSE 137 mg/dL (74-106); POTASSIUM 3.6 mmol/L (3.5-5.1); SODIUM SERUM 140 mmol/L (136-145); UREA NITROGEN, BLOOD 5 mg/dL (7-18)
[2023-11-09 11:40] LABS: ALANINE AMINOTRANSFERASE 177 U/L (12-78); ALBUMIN 3.3 g/dL (3.4-5.0); ALCOHOL, BLOOD 85 mg/dL (0-10); ALKALINE PHOSPHATASE 140 U/L (46-116); ASPARTATE AMINOTRANSFERASE 185 U/L (15-37); BILIRUBIN,DIRECT 0.6 mg/dL (0.0-0.2); BILIRUBIN,TOTAL 1.4 mg/dL (0.2-1.0); TOTAL PROTEIN, SERUM 8.3 g/dL (6.4-8.2)
[2023-11-09 11:44] LABS: ACETAMINOPHEN <10 ug/ml (10-30); SALICYLATE < 0.2 mg/dL (2.8-20.0)
[2023-11-09 11:46] LABS: AMPHETAMINE, URINE POSITIVE (NEGATIVE); BARBITURATE, URINE NEGATIVE (NEGATIVE); BENZODIAZEPINE, URINE NEGATIVE (NEGATIVE); CANNABINOID, URINE NEGATIVE (NEGATIVE); COCCAINE, URINE NEGATIVE (NEGATIVE); OPIATE, URINE NEGATIVE (NEGATIVE); PHENCYCLIDINE SCREEN,URINE NEGATIVE (NEGATIVE)
[2023-11-09 11:59] LABS: ADD URINE CULTURE YES; BACTERIA,URINE Rare /HPF (None Seen); RBC,URINE 0-2 /HPF (0-2); SQUAMOUS EPITHELIAL CELL,UR Rare /HPF (None Seen); WBC,URINE NONE SEEN /HPF (0-3)
[2023-11-09 15:07] VITALS: BP 146/87; TEMP 97; O2SAT 98
== END 2023-11-09 15:08 ==
LOC: ER 10:37
DX: F41.9 Anxiety disorder, unspecified (principal); F31.9 Bipolar disorder, unspecified; F20.9 Schizophrenia, unspecified; Z86.69 Personal history of other diseases of the nervous system and sense organs; Z20.822 Contact with and (suspected) exposure to COVID-19
CPT/HCPCS: 36415; 80048-TC; 80076-TC; 81001; 85025-TC; 87086-TC; G0480

== ENCOUNTER 2023-11-27 20:16 | Emergency (ER) | payer OTHER ==
[~2023-11-27] VITALS: Ht 175.3 cm; Wt 95.3 kg
--- NOTE | 2023-11-27 20:30 | NUR ---
Patient placed on cafeteria monitor/pulse ox
--- NOTE | 2023-11-27 20:30 | NUR ---
BIBRA 39 FRM BELGRADE C/O CP X YEARS
--- NOTE | 2023-11-27 20:43 | NUR ---
18g IV established in the RAC. Blood drawn labeled at bedside and sent to lab for processing
[2023-11-27 20:47] LABS: BASOPHILS # (AUTO) 0.1 K/uL (0.0-0.2); EOSINOPHILS # (AUTO) 0.1 K/uL (0.0-0.7); HEMATOCRIT 40 % (39-51); LYMPHOCYTES # (AUTO) 1.4 K/uL (0.8-4.8); LYMPHOCYTES % (AUTO) 25.3 % (20.0-44.0); MEAN CORPUSCULAR HEMOGLOBIN 30 PG (26.0-33.0); MEAN CORPUSCULAR HGB CONC 32 g/dl (31.0-36.0); MEAN CORPUSCULAR VOLUME 91 fL (80-96); MONOCYTES # (AUTO) 0.4 K/uL (0.1-1.30); MONOCYTES % (AUTO) 7.1 % (2.0-12.0); NEUTROPHILS # (AUTO) 3.6 K/uL (1.8-8.9); NEUTROPHILS % (AUTO) 65.6 % (43.0-81.0); PLATELET COUNT (AUTO) 233 K/uL (150-450); RED BLOOD CELL COUNT(AUTO) 4.42 MIL/uL (4.5-6.0); RED CELL DISTRIBUTION WIDTH 16.5 % (11.5-15.0); WHITE BLOOD COUNT (AUTO) 5.5 K/uL (4.3-11.0)
--- NOTE | 2023-11-27 20:51 | NUR ---
xray at [facility]
[2023-11-27 20:56] LABS: CALCIUM, SERUM 8.5 mg/dL (8.5-10.1); CARBON DIOXIDE 28 mmol/L (21-32); CHLORIDE 104 mmol/L (98-107); CREATININE 0.6 mg/dL (0.6-1.3); GLUCOSE 116 mg/dL (74-106); POTASSIUM 3.4 mmol/L (3.5-5.1); SODIUM SERUM 141 mmol/L (136-145); UREA NITROGEN, BLOOD 4 mg/dL (7-18)
[2023-11-27 21:12] LABS: NT-PRO BNP 81 pg/mL (0-125)
[2023-11-27 21:41] LABS: ALCOHOL, BLOOD 329 mg/dL (0-10)
[2023-11-27 21:52] LABS: ACETAMINOPHEN 0 ug/ml (10-30); SALICYLATE < 0.2 mg/dL (2.8-20.0)
[2023-11-27 22:19] LABS: APPEARANCE,URINE CLEAR (CLEAR); BILIRUBIN,URINE 1+ (NEGATIVE); BLOOD, URINE NEGATIVE Ery/uL (NEGATIVE); COLOR,URINE YELLOW (YELLOW); KETONES,URINE TRACE mg/dL (NEGATIVE); LEUKOCYTE ESTERASE ,URINE NEGATIVE (NEGATIVE); NITRITE, URINE NEGATIVE (NEGATIVE); PROTEIN,URINE 1+ mg/dl (NEGATIVE); UGLUCOSE NEGATIVE (NEGATIVE)
[2023-11-27 22:21] LABS: ADD URINE CULTURE NO; BACTERIA,URINE Rare /HPF (None Seen); SQUAMOUS EPITHELIAL CELL,UR Few /HPF (None Seen)
[2023-11-27 22:27] LABS: AMPHETAMINE, URINE POSITIVE (NEGATIVE); BARBITURATE, URINE NEGATIVE (NEGATIVE); BENZODIAZEPINE, URINE NEGATIVE (NEGATIVE); CANNABINOID, URINE NEGATIVE (NEGATIVE); COCCAINE, URINE NEGATIVE (NEGATIVE); OPIATE, URINE NEGATIVE (NEGATIVE); PHENCYCLIDINE SCREEN,URINE NEGATIVE (NEGATIVE)
--- NOTE | 2023-11-27 23:03 | NUR ---
Blane collected and sent to lab
[2023-11-28 06:55] VITALS: BP 124/74; TEMP 98.6; O2SAT 100
--- NOTE | 2023-11-28 06:55 | NUR ---
PT ELOPED FROM ER
== END 2023-11-28 06:56 | disposition home or self-care (01) ==
LOC: ER 20:32
DX: R45.851 Suicidal ideations (principal); R07.9 Chest pain, unspecified; F41.9 Anxiety disorder, unspecified; F20.9 Schizophrenia, unspecified; F31.9 Bipolar disorder, unspecified; R00.0 Tachycardia, unspecified; F10.10 Alcohol abuse, uncomplicated; Z59.00 Homelessness unspecified; Z86.69 Personal history of other diseases of the nervous system and sense organs; Z20.822 Contact with and (suspected) exposure to COVID-19; Y90.8 Blood alcohol level of 240 mg/100 ml or more
CPT/HCPCS: 36415; 71045-TC; 80048-TC; 81001; 83880; 84484-TC; 85025-TC; G0480

== ENCOUNTER 2024-02-19 08:05 | Emergency (ER) | payer OTHER ==
[~2024-02-19] VITALS: Ht 180.3 cm; Wt 113.4 kg
[2024-02-19 08:31] LABS: BASOPHILS % (AUTO) 0.8 % (0.0-2.0); HEMATOCRIT 41 % (39-51); HEMOGLOBIN 13.9 g/dL (13.5-17.5); LYMPHOCYTES # (AUTO) 0.9 K/uL (0.8-4.8); LYMPHOCYTES % (AUTO) 20.3 % (20.0-44.0); MEAN CORPUSCULAR HEMOGLOBIN 31 PG (26.0-33.0); MEAN CORPUSCULAR HGB CONC 34 g/dl (31.0-36.0); MEAN CORPUSCULAR VOLUME 91 fL (80-96); MONOCYTES # (AUTO) 0.3 K/uL (0.1-1.30); MONOCYTES % (AUTO) 8.2 % (2.0-12.0); NEUTROPHILS % (AUTO) 69.7 % (43.0-81.0); PLATELET COUNT (AUTO) 149 K/uL (150-450); RED BLOOD CELL COUNT(AUTO) 4.51 MIL/uL (4.5-6.0); RED CELL DISTRIBUTION WIDTH 14.9 % (11.5-15.0); WHITE BLOOD COUNT (AUTO) 4.3 K/uL (4.3-11.0)
[2024-02-19] MEDS ORDERED: LORAZEPAM 1 MG TABLET ONE ×2 (08:34→12:56)
[2024-02-19] MEDS: LORAZEPAM 1 MG TABLET PO ONE ×2 (08:36→12:56)
[2024-02-19 08:43] LABS: CALCIUM, SERUM 8.8 mg/dL (8.5-10.1); CARBON DIOXIDE 26 mmol/L (21-32); CHLORIDE 100 mmol/L (98-107); CREATININE 0.6 mg/dL (0.6-1.3); GLUCOSE 116 mg/dL (74-106); POTASSIUM 3.3 mmol/L (3.5-5.1); SODIUM SERUM 138 mmol/L (136-145); UREA NITROGEN, BLOOD 3 mg/dL (7-18)
[2024-02-19 08:48] LABS: ALANINE AMINOTRANSFERASE 106 U/L (12-78); ALBUMIN 3.3 g/dL (3.4-5.0); ALCOHOL, BLOOD 177 mg/dL (0-10); ALKALINE PHOSPHATASE 169 U/L (46-116); ASPARTATE AMINOTRANSFERASE 159 U/L (15-37); BILIRUBIN,DIRECT 0.8 mg/dL (0.0-0.2); BILIRUBIN,TOTAL 1.4 mg/dL (0.2-1.0); TOTAL PROTEIN, SERUM 7.9 g/dL (6.4-8.2)
[2024-02-19 08:50] LABS: ACETAMINOPHEN <10 ug/ml (10-30); SALICYLATE < 2.3 mg/dL (2.8-20.0)
[2024-02-19 09:13] LABS: ADD URINE CULTURE NO; APPEARANCE,URINE CLEAR (CLEAR); BACTERIA,URINE Rare /HPF (None Seen); BILIRUBIN,URINE 1+ (NEGATIVE); BLOOD, URINE NEGATIVE Ery/uL (NEGATIVE); COLOR,URINE DARK YELLOW (YELLOW); KETONES,URINE TRACE mg/dL (NEGATIVE); LEUKOCYTE ESTERASE ,URINE NEGATIVE (NEGATIVE); NITRITE, URINE NEGATIVE (NEGATIVE); PH,URINE 6.5 (5.0-8.0); PROTEIN,URINE TRACE mg/dl (NEGATIVE); SQUAMOUS EPITHELIAL CELL,UR Moderate /HPF (None Seen); UGLUCOSE TRACE mg/dL (NEGATIVE)
[2024-02-19 09:53] LABS: AMPHETAMINE, URINE POSITIVE (NEGATIVE); BARBITURATE, URINE NEGATIVE (NEGATIVE); BENZODIAZEPINE, URINE NEGATIVE (NEGATIVE); CANNABINOID, URINE NEGATIVE (NEGATIVE); COCCAINE, URINE NEGATIVE (NEGATIVE); OPIATE, URINE NEGATIVE (NEGATIVE); PHENCYCLIDINE SCREEN,URINE NEGATIVE (NEGATIVE)
[2024-02-19 12:00] VITALS: BP 138/100; TEMP 98; O2SAT 98
[2024-02-20] MEDS ORDERED: POTASSIUM CHLORIDE 20 MEQ TAB.PRT.SR PO ONE (16:55)
[2024-02-20] MEDS: POTASSIUM CHLORIDE 20 MEQ TAB.PRT.SR PO ONE (16:59)
== END 2024-02-20 17:30 ==
LOC: ER 08:09
DX: R45.851 Suicidal ideations (principal); R00.2 Palpitations; R00.0 Tachycardia, unspecified; R07.89 Other chest pain; F20.9 Schizophrenia, unspecified; F10.10 Alcohol abuse, uncomplicated; F32.A Depression, unspecified; F41.9 Anxiety disorder, unspecified; Z20.822 Contact with and (suspected) exposure to COVID-19; Y90.6 Blood alcohol level of 120-199 mg/100 ml
CPT/HCPCS: 36415; 71045-TC; 80048-TC; 80076-TC; 81001; 84484-TC; 85025-TC; G0480